=== PATIENT | female | born 1965 | race Two or more races ===

== ENCOUNTER 2017-06-28 11:41 | Day surgery (SDC) | payer OTHER ==
[2017-06-28] MEDS ORDERED: PROPOFOL 20 ML ONE ×2 (12:31)
[2017-06-28] MEDS ORDERED: LIDOCAINE HCL/PF 2% SDV 5ML VIAL ONE (12:31)
[2017-06-28 12:39] VITALS: BMI 27.1
[2017-06-28 13:27] VITALS: TEMP 98.5
[2017-06-28 14:06] VITALS: BP 123/86; PULSE 64
--- NOTE | 2017-07-01 13:00 | PATH ---
Surgical Pathology Report Patient Name: ALEXI [facility]ARAL [facility]. Rec. #: [id number] /Age/Gender: 1965 (Age: 52) / F Account: [id number] Location: [facility]-ENDOSCOPY Taken: 06/28/2017 Received: 06/28/2017 Reported: 07/01/2017 Physicians: Huseyin Lebron M.D. Specimen(s) Received A: BX STOMACH B: BX ESOPHAGUS Clinical History Silva's esophagus Hiatal hernia, gastritis Final Diagnosis A. STOMACH, BIOPSY: GASTRIC ANTRAL AND OXYNTIC MUCOSA WITH MODERATE CHRONIC GASTRITIS AND REACTIVE GASTROPATHY. IMMUNOSTAIN FOR H. PYLORI IS NEGATIVE FOR ORGANISMS. B. ESOPHAGUS, BIOPSY: SQUAMOCOLUMNAR JUNCTIONAL MUCOSA WITH ACTIVE AND CHRONIC INFLAMMATION AND REFLUX TYPE CHANGES. NO INTESTINAL METAPLASIA (SILVA'S ESOPHAGUS) IDENTIFIED IN THE EXAMINED MATERIAL. Electronically Signed Ayaz York M.D. Gross Description A. Received in formalin, labeled "biopsy stomach" are 2 knox, irregular portions of soft tissue measuring 0.2 and 0.4 cm in greatest dimension. The specimens are submitted in toto in one cassette. B. Received in formalin, labeled "biopsy esophagus" is a knox, irregular portion of soft tissue measuring 0.3 cm in greatest dimension. The specimen is submitted in toto in one cassette. 06/28/201706/28/2017
== END 2017-06-28 14:06 | disposition home or self-care (01) ==
LOC: JASU-ENDO 11:41
PROVIDERS: ATTEND Internal Medicine Gastroenterology
PROC: 0DB68ZX Excision of Stomach, Via Natural or Artificial Opening Endoscopic, Diagnostic (ICD-10-PCS; 2017-06-28)
PROC: 0DB58ZX Excision of Esophagus, Via Natural or Artificial Opening Endoscopic, Diagnostic (ICD-10-PCS; principal; 2017-06-28 12:30)
DX: K29.70 Gastritis, unspecified, without bleeding (principal); K44.9 Diaphragmatic hernia without obstruction or gangrene
CPT/HCPCS: 84703; 88305-TC; 88342-TC

== ENCOUNTER 2021-03-02 05:00 | Day surgery (SDC) | payer OTHER ==
[2021-02-27 16:41] VITALS: BMI 29.0
[2021-03-02 11:46] VITALS: TEMP 97.8
[2021-03-02 12:25] VITALS: BP 121/63; PULSE 57
== END 2021-03-02 13:30 | disposition home or self-care (01) ==
LOC: JASU-ENDO 05:00
PROVIDERS: ATTEND Internal Medicine Gastroenterology
PROC: 0DB78ZX Excision of Stomach, Pylorus, Via Natural or Artificial Opening Endoscopic, Diagnostic (ICD-10-PCS; 2021-03-02)
PROC: 0DB78ZX Excision of Stomach, Pylorus, Via Natural or Artificial Opening Endoscopic, Diagnostic (ICD-10-PCS; principal; 2021-03-02 11:15)
DX: K29.70 Gastritis, unspecified, without bleeding (principal); K31.7 Polyp of stomach and duodenum; K21.9 Gastro-esophageal reflux disease without esophagitis; K31.89 Other diseases of stomach and duodenum; Z87.19 Personal history of other diseases of the digestive system
CPT/HCPCS: 88305-TC; 88342-TC

== ENCOUNTER 2021-03-09 04:27 | Day surgery (SDC) | payer OTHER ==
[2021-03-07 15:07] VITALS: BMI 28.8
[2021-03-09 11:49] VITALS: BP 127/72; PULSE 77; TEMP 98
== END 2021-03-09 11:57 | disposition home or self-care (01) ==
LOC: JASU-ENDO 04:27
PROVIDERS: ATTEND Internal Medicine Gastroenterology
PROC: 0DBL8ZX Excision of Transverse Colon, Via Natural or Artificial Opening Endoscopic, Diagnostic (ICD-10-PCS; 2021-03-09)
PROC: 0DBP8ZX Excision of Rectum, Via Natural or Artificial Opening Endoscopic, Diagnostic (ICD-10-PCS; 2021-03-09)
PROC: 0DBK8ZX Excision of Ascending Colon, Via Natural or Artificial Opening Endoscopic, Diagnostic (ICD-10-PCS; principal; 2021-03-09 09:45)
DX: Z12.11 Encounter for screening for malignant neoplasm of colon (principal); D12.3 Benign neoplasm of transverse colon; K62.1 Rectal polyp; K63.5 Polyp of colon; K57.30 Diverticulosis of large intestine without perforation or abscess without bleeding; K64.8 Other hemorrhoids; Z86.010 Personal history of colon polyps; Z80.0 Family history of malignant neoplasm of digestive organs
CPT/HCPCS: 88305-TC

== ENCOUNTER 2024-01-30 03:59 | Day surgery (SDC) | payer OTHER ==
[2024-01-28 15:57] VITALS: BMI 26.1
[2024-01-30 08:43] VITALS: TEMP 98
[2024-01-30 12:12] VITALS: BP 112/61; PULSE 60; RESP 12
== END 2024-01-30 09:26 | disposition home or self-care (01) ==
LOC: JASU-ENDO 03:59
PROVIDERS: ATTEND Internal Medicine Gastroenterology
PROC: 0DBL8ZX Excision of Transverse Colon, Via Natural or Artificial Opening Endoscopic, Diagnostic (ICD-10-PCS; 2024-01-30)
PROC: 0DBH8ZX Excision of Cecum, Via Natural or Artificial Opening Endoscopic, Diagnostic (ICD-10-PCS; principal; 2024-01-30 08:00)
DX: D12.0 Benign neoplasm of cecum (principal); D17.5 Benign lipomatous neoplasm of intra-abdominal organs; K64.8 Other hemorrhoids; K62.89 Other specified diseases of anus and rectum; K57.30 Diverticulosis of large intestine without perforation or abscess without bleeding
CPT/HCPCS: 88304-TC; 88305-TC

== ENCOUNTER 2024-02-13 04:19 | Day surgery (SDC) | payer OTHER ==
[2024-02-10 12:18] VITALS: BMI 28.6
[2024-02-13 09:15] VITALS: TEMP 97.1
[2024-02-13 09:43] VITALS: BP 131/66; PULSE 69; RESP 18
== END 2024-02-13 09:47 | disposition home or self-care (01) ==
LOC: JASU-ENDO 04:19
PROVIDERS: ATTEND Internal Medicine Gastroenterology
PROC: 0DB78ZX Excision of Stomach, Pylorus, Via Natural or Artificial Opening Endoscopic, Diagnostic (ICD-10-PCS; 2024-02-13)
PROC: 0DB68ZX Excision of Stomach, Via Natural or Artificial Opening Endoscopic, Diagnostic (ICD-10-PCS; principal; 2024-02-13 08:00)
DX: K29.50 Unspecified chronic gastritis without bleeding (principal); K31.7 Polyp of stomach and duodenum
CPT/HCPCS: 88305-TC; 88342-TC